=== PATIENT | female | born 1990 | race Caucasian/White ===

== ENCOUNTER 2022-12-10 14:31 | Outpatient (REF) | payer MEDICAID, SELFPAY ==
[2022-12-11 03:55] LABS: CT PCR NOT DETECTED (Not Detect.); NG PCR NOT DETECTED (Not Detect.)
[2022-12-11 12:59] LABS: BV Int Neg Control Negative (Negative); BV Int Pos Control Positive (Positive)
[2022-12-12 23:43] LABS: HPV mRNA E6/E7 rflx Not Detected (Not Detected)
== END 2022-12-10 14:32 | disposition home or self-care (01) ==
LOC: HO.LNP 14:31
PROVIDERS: PCP General Practice; Visit Provider Advanced Practice Midwife
DX: Z01.419 Encounter for gynecological examination (general) (routine) without abnormal findings (principal); Z11.51 Encounter for screening for human papillomavirus (HPV); Z20.2 Contact with and (suspected) exposure to infections with a predominantly sexual mode of transmission; L98.9 Disorder of the skin and subcutaneous tissue, unspecified; K61.0 Anal abscess; Z98.51 Tubal ligation status
CPT/HCPCS: 0353U; 87255; 87480; 87510; 87624; 87660; 88142; 99385

== ENCOUNTER 2022-12-10 14:31 | Outpatient (AMB) | payer MEDICAID, SELFPAY ==
--- NOTE | 2022-12-10 14:54 | A.OFFVIS_ITS ---
Intake Vital Signs 12/10/22 14:54 Weight 145 lb Intake Visit Reasons: Annual Intake Note: exboyfriend said he felt a ball in her vagina. Filter Tender Required: No Information Interpreted: non-clinical & clinical Lubrication Technician: Lubrication Technician Present (Kyree) Allergies No Known Allergies Allergy (Verified 12/10/22 14:57) Medication List - Last Reconciled 12/10/22 by Roseanne Mondragon CNM No Known Home Meds Is last menstrual period known: No Post menopausal: No HPI Annual HPI Details Patient is here for an annual exam though she for got that that was the reason. She does have some concerns she was with her partner for 8 years and she broke up with him but before there break-up he told her that he felt something like a ball inside her vagina and so she is concerned about that also at the very end of the visit she shared that she was concerned about a lesion that comes and goes near her but and sometime she gets 1 near her lips she does not have the 1 near her lips now (vaginal lips) but she does have the 1 near her but and after the exam was all over she asked me to check that. She has a history of vaginal deliveries and she also had C-sections. She had her tubes tied but then she got afterward so she asked for a with her last 1 and had her tubes removed. She has 6 children. She is not currently with anybody but she is contemplating a future relationship and she does have questions about libido and wondering why she did not have it the last few years though she also voiced that it could have a lot to do with the relationship. [facility] Surgical History (Updated 12/10/22 @ 15:49 by Roseanne Mondragon CNM) Hx of tubal ligation Family History (Updated 12/10/22 @ 15:02 by ELAINE Espinoza) Maternal Grandmother Breast cancer Social History (Updated 12/10/22 @ 15:03 by ELAINE Espinoza) Patient Tobacco Use Status: Current everyday Tobacco user Cigarettes Per Day: 7 Female Reproductive History Menstrual Age of Menarche: 13 Duration of menses: 3-5 days control method: other (Tubal ligation) Total pregnancies: 7 Full term: 6 Number of Living Children: 6 Ab induced: 1 Date of last pap smear: 12/06/11 (negative) Physical Exam Const General: healthy appearing, comfortable, no acute distress, well developed and alert Nutritional Appearance: average body habitus Orientation/consciousness: patient oriented x3 Limitations: no limitations HEENT Head: Yes normocephalic Neck Neck: Yes normal visual inspection Chest Chest palpation & inspection: normal inspection of the chest Breast/axilla inspection: normal inspection of the breasts and normal inspection of the axillae Breast/axilla palpation: normal palpation of the breasts and normal palpation of the axillae Resp Effort & Inspection: normal respiratory effort GI Inspection: Yes normal to inspection, No Abdominal wall edema and No distended Palpation (GI): Soft to palpation and nontender Other: Speculum exam within normal limits normal anatomy. Vagina pink moist. Evidence of recent weight loss both vaginally and all over (patient says she did lose a lot of weight this past year) cervix is multiparous long close thick pink mobile uterus is anteverted mobile nontender patient has fairly good tone with Kegel no evidence of vaginal descensus at this point though patient is has wondered about that. After the initial pelvic exam patient asked me to check the area near her rectum so posterior and to the right there we was within the puckers of rectal mucosa about 2-3 centimetres from the actual rectum there was a 1 cm oval shallow ulcerated area patient chin did find it tender to touch with the Q-tip HSV culture being sent. General: Yes bladder normal to palpation External Female Exam: normal external appearance and normal appearance of the urethra Speculum Exam - Vagina: normal appearance of the vagina, normal palpation and normal vaginal discharge Speculum Exam - Cervix: normal appearance of the cervix, normal palpation and nontender Bimanual exam- vagina & uterus: normal bimanual exam, normal palpation, uterine size normal, bladder normal to palpation, consistency normal, normal palpation, uterine mobility normal, uterine shape normal, No Cervical tenderness present, non-tender and no cervical motion tenderness Bimanual Exam- Adnexa, other: normal adnexae, no masses, normal and No adnexal tenderness Neuro General: patient oriented x3 Assessment & Plan Assessment & Plan (1) Skin lesion: Code(s): L98.9 - Disorder of the skin and subcutaneous tissue, unspecified (2) Perianal abscess: Code(s): K61.0 - Anal abscess (3) Cervical cancer screening: Code(s): Z12.4 - Encounter for screening for malignant neoplasm of cervix (4) Screen for sexually transmitted diseases: Code(s): Z11.3 - Encounter for screening for infections with a predominantly sexual mode of transmission (5) Women's annual routine gynecological examination: Code(s): Z01.419 - Encounter for gynecological examination (general) (routine) without abnormal findings (6) Hx of tubal ligation: Comment: Also had complete salpingectomy with last . Code(s): Z98.51 - Tubal ligation status Plan -----Discussed in this visit the following: healthy balanced diet, regular and consistent exercise, getting recommended health screens, doing the best she can for her particular health concerns, kegel exercises, pap smear screening and followup recommendations, mammography screening and SBE, normal changes in cycles in her life stage--- .---I Had the patient and demonstrate a Kegel contraction at the end of the exam, ordered in order to explain a Kegel exercise, and instructed the patient on doing the same exercises several times a day with increasing strength each time. One useful to is to imagine pursestring around the vagina and pulling it tight and upwards as if raising the vagina, or imagining that her tight muscles are on the 1st floor and she is trying to pull them up to the 5th floor and then slowly letting them go down. To try to do these several times a day but focus on the quality and the strength of the exercises more than the quantity, and tried isolate just those muscles and not involve other body parts. Discussed the possibility that it could be a skin lesion from a scratch that got superficially infected but it also could very well be herpetic discussed the natural transmission of herpes from 1 person to another and hygiene and how to prevent further transmission. Discussed that it could have been there for a long time as she seems to notice it coming and going over the years. There was no concurrently lesion on her labia to assess at this time. Will have a visit to review the results in 7-10 days as she had lots of questions about this and was processing. Orders: Orders CT NG by PCR Today Z20.2 - Contact with and (suspected) exposure to infections with a predominantly sexual mode of transmission Herpes Virus Culture rflx Type Today K61.0 - Anal abscess Bacterial Vaginosis Panel Today Z20.2 - Contact with and (suspected) exposure to infections with a predominantly sexual mode of transmission Pap Smear Today Z12.4 - Encounter for screening for malignant neoplasm of cervix Coding Level of Care Code New Pt Prev Care 18-39yr([id number] Diagnoses Skin lesion L98.9 Perianal abscess K61.0 Cervical cancer screening Z12.4 Screen for sexually transmitted diseases Z11.3 Women's annual routine gynecological examination Z01.419 Hx of tubal ligation Z98.51
== END 2022-12-10 15:52 | disposition home or self-care (01) ==
PROVIDERS: PCP General Practice; Visit Provider Advanced Practice Midwife
DX: L98.9 Disorder of the skin and subcutaneous tissue, unspecified (principal); K61.0 Anal abscess; Z12.4 Encounter for screening for malignant neoplasm of cervix; Z11.3 Encounter for screening for infections with a predominantly sexual mode of transmission; Z01.419 Encounter for gynecological examination (general) (routine) without abnormal findings; Z98.51 Tubal ligation status
CPT/HCPCS: 99385

== ENCOUNTER 2022-12-16 10:21 | Outpatient (AMB) | payer MEDICAID, SELFPAY ==
--- NOTE | 2022-12-16 10:21 | A.OFFVIS_ITS ---
Intake Intake Visit Reasons: TV test results Intake Note: [phone] Allergies No Known Allergies Allergy (Verified 12/10/22 14:57) HPI TV test results HPI Details This is a tele visit to discuss patient's positive HSV results. She had had a visit last week and at the end of the visit she asked me to check a perianal lesion. She said that it came and went. It is already gone now she sometimes gets it on her vaginal lips as well. PFSH Surgical History (Updated 12/10/22 @ 15:49 by Roseanne Mondragon CNM) Hx of tubal ligation Family History (Updated 12/10/22 @ 15:02 by ELAINE Espinoza) Maternal Grandmother Breast cancer Social History (Updated 12/10/22 @ 15:03 by ELAINE Espinoza) Patient Tobacco Use Status: Current everyday Tobacco user Cigarettes Per Day: 7 Female Reproductive History Menstrual Age of Menarche: 13 Results Reviewed Results Reviewed: Name: Kenya Verdugo Age/Sex: 32/F : 1990 Unit#: [id number] Attend Dr: Roseanne Mondragon CNM Re12/10/22 Status: DEP REF Location: [facility] Disch: SPEC : [id number] JAYASHREE: 12/10/22 STATUS: COMP REQ : [id number] RECD: 12/10/[address]: Roseanne Mondragon CNM COMP: 12/14/22134 ENTERED: 12/10/22 [facility] [place] DR: Kiya Burnett ORDERED: HSV Cult rflx QUERIES: Herpes Virus Culture Source ANAL Test Result Flag Reference Site HSV Cult rflx SEE NOTE A QUM HERPES SIMPLEX VIRUS CULTURE W/RFL TO TYPING Micro Number: [id number] Test Status: Final Specimen Source: Not given Specimen Quality: Adequate HSV Culture: Isolated HSV TYPE 2: Isolated HSV TYPE 1: The incidence of HSV 1 infection in the presence of HSV 2 (dual infection) is extremely rare. Therefore, testing for HSV 1 was not performed. THIS TEST WAS PERFORMED AT: [facility] [address] [place] [id number] TANNER ALFORD MD Assessment & Plan Assessment & Plan (1) Perianal abscess: Code(s): K61.0 - Anal abscess (2) Skin lesion: Code(s): L98.9 - Disorder of the skin and subcutaneous tissue, unspecified (3) Recurrent HSV (herpes simplex virus): Comment: Culture of perianal lesion from 12/10/2022 positive for HSV to patient says they have come and gone over the last year a couple of times p.r.n. Valtrex prescribed and extensive teaching. Declines other STI testing other than what was done at visit. Code(s): B00.9 - Herpesviral infection, unspecified Plan See note under HSV. Full teaching was done at the visit and teaching was repeated again about transmission and recurrences,. Extensive teaching about the natural history of this and how it can be shared with other people and how to guard against this and possible times that the virus can shed from lesions both before and while there is interruption. Discussed care and hygiene to prevent transmission within the family as well as sexual contacts with careful hand washing and sharing of clothing towels, etc. I offered a prescription for p.r.n. treatment with Valtrex and instructed her on how to take it and sent a prescription for 30 tablets of else I clear to her [facility] pharmacy with 1 refill that she can take for 3-5 days for episodic outbreaks will see her p.r.n. I offered other testing for STIs including blood work but she declined I did review her other negative labs. pap Smear still pending Medications: New valacyclovir take for 3-5 days for episodic outbreak. 1,000 mg PO DAILY 30 tabs 1RF Telehealth Telehealth Location of provider rendering services: practice address Location of patient: address on file Patient Identification confirmed using: Name, : Yes Telehealth method: video Patient verbally consented to treatment: Yes Patient verbally consented to billing insurance company: Yes Patient informed of any privacy concerns related to visit: Yes Coding Level of Care Code Tele Est Pt Level 3 (37991) Diagnoses Perianal abscess K61.0 Skin lesion L98.9 Recurrent HSV (herpes simplex virus) B00.9
== END 2022-12-16 14:39 | disposition home or self-care (01) ==
LOC: HO.HWS 10:21
PROVIDERS: PCP General Practice; Visit Provider Advanced Practice Midwife
DX: K61.0 Anal abscess (principal); L98.9 Disorder of the skin and subcutaneous tissue, unspecified; B00.9 Herpesviral infection, unspecified
CPT/HCPCS: 99213

== ENCOUNTER → 2022-12-16 10:21 | Outpatient (BNVA) | payer MEDICAID, SELFPAY | PROVIDERS: PCP General Practice; Visit Provider Advanced Practice Midwife ==

== ENCOUNTER 2023-03-13 16:46 | Outpatient (REF) | payer MEDICAID, SELFPAY ==
[2023-03-14 15:17] LABS: BV Int Neg Control Negative (Negative); BV Int Pos Control Positive (Positive)
== END 2023-03-13 16:47 | disposition home or self-care (01) ==
LOC: HO.HHCLNP 16:46
PROVIDERS: Visit Provider Advanced Practice Midwife
DX: N89.8 Other specified noninflammatory disorders of vagina (principal)
CPT/HCPCS: 87480; 87510; 87660

== ENCOUNTER 2023-08-07 22:19 | Emergency (ER) | payer OTHER, SELFPAY ==
--- NOTE | 2023-08-07 | ECG_ITS ---
Test Reason : EPIGASTRIC PAIN Blood Pressure : / mmHG Vent. Rate : 078 BPM Atrial Rate : 078 BPM P-R Int : 166 ms QRS Dur : 064 ms QT Int : 354 ms P-R-T Axes : 067 023 020 degrees QTc Int : 403 ms Normal sinus rhythm Normal ECG When compared with ECG of 27-DEC-2012 12:35, No significant change was found Referred By: Generic ED Physician Electronically Signed By:QUINTEN RITTER
[2023-08-07 22:37] VITALS: BP 101/73; PULSE 74; RESP 16; TEMP 35.9; O2SAT 98; BMI 28.3
[2023-08-07 22:56] LABS: Basophils Absolute Auto 0.1 X10*3/uL (0.0-0.2); Basophils Percent Auto 0.7 % (0-2); Eosinophils Absolute Auto 1.3 X10*3/uL (0.0-0.4); Eosinophils Percent Auto 13.3 % (0-4); Hematocrit 42.6 % (37.0-47.0); Imm Gran Abs Auto 0.04 X10*3/uL (0.00-0.03); Imm Gran Pct Auto 0.4 % (0.0-0.4); Lymphocytes Percent Auto 31.2 % (20-40); MANUAL DIFF FLAG NO; Mean Corpuscular HGB Conc 35.2 g/dl (31.0-35.0); Mean Corpuscular Hemoglobin 30.5 pg (27.0-33.0); Mean Corpuscular Volume 86.8 fL (80.0-98.0); Mean Platelet Volume 9.4 fL (9.4-12.3); Monocytes Absolute Auto 0.5 X10*3/uL (0.1-1.2); Monocytes Percent Auto 5.3 % (2-11); Neutrophils Absolute Auto 4.8 x10*3/uL (2.0-8.3); Neutrophils Percent Auto 49.1 % (45-73); Platelet Count 269 X10*3/uL (160-400); Red Blood Count 4.91 X10*6/uL (4.20-5.50); Red Cell Distribution Width 12.1 % (11.0-16.0); White Blood Count 9.7 X10*3/uL (4.8-10.8)
[2023-08-07 23:12] LABS: Alanine Aminotransferase 14 U/L (0-31); Albumin Level 4.1 g/dL (3.5-5.0); Alkaline Phosphatase 45 U/L (39-117); Anion Gap 10 (12-20); Aspartate Amino Transferase 12 U/L (5-31); Bilirubin Direct 0.1 mg/dL (0.0-0.5); Bilirubin Total 0.4 mg/dL (0.0-1.0); Blood Urea Nitrogen 12 mg/dL (9-16); Calcium 9.7 mg/dL (8.4-10.2); Carbon Dioxide 27 mmol/L (22-29); Chloride 106 mmol/L (96-108); Creatinine Clr Calc Pharmacy 99.9; Estimated Glomerular Filt Rate > 60; Glucose Random 108 mg/dL (60-115); Lipase 37 U/L (8-78); Sodium 139 mmol/L (135-145); Total Protein 6.4 g/dL (6.5-8.0)
[2023-08-08 00:35] VITALS: BP 117/79; PULSE 66; RESP 16; TEMP 36.7; O2SAT 100
[2023-08-08 00:45] VITALS: BP 113/77; PULSE 71; RESP 20; TEMP 36.6; O2SAT 99
[2023-08-08 01:18] LABS: Appearance Urine Clear; Color Urine Yellow; Glucose Urine UA Negative (Negative); Leukocyte Esterase Urine Negative (Negative); Nitrite Urine Negative (Negative); Specific Gravity - Urine 1.015 (1.005-1.025); Urine Blood Negative (Negative); Urine Ketones Negative (Negative); Urine Protein Negative (Neg-Trace)
[2023-08-08 01:19] LABS: UPreg QC Valid YES; Urine Pregnancy NEGATIVE (NEGATIVE)
--- NOTE | 2023-08-08 02:46 | ED_ITS ---
HPI - Abdominal Pain General Chief Complaint: Abdominal Pain Stated Complaint: abd pain ,headache Time Seen by Provider: 08/08/23 02:35 Source: patient Mode of arrival: ambulatory Limitations: no limitations History of Present Illness ED Provider: Dr. Rubina Oliveira HPI narrative: Patient comes to the emergency room complaining of epigastric burning sensation that starts after eating anything. Patient reports that this has been going on for about 4 days. Patient denies nausea vomiting or diarrhea. At this time, since patient has not eaten, patient is asymptomatic. Patient denies chest pain or shortness of breath. Related Data Previous Rx's ?Medication ?Instructions ?Recorded valacyclovir 1 gram tablet 1,000 mg PO DAILY #30 tabs 12/16/22 omeprazole 20 mg capsule,delayed 20 mg PO DAILY #30 caps 08/08/23 release Allergies Allergy/AdvReac Type Severity Reaction Status Date / Time No Known Allergies Allergy Verified 08/07/23 22:40 Review of Systems Review of Systems Constitutional : No Weight loss, No Fever, No Chills, No Night Sweats, No Fatigue, No Malaise ENT/Mouth : No Hearing loss, No Ear Pain, No Nasal Congestion, No Sinus Pain, No Hoarseness, No sore throat, No Rhinorrhea, No Swallowing Difficulty Eyes: No Eye Pain, No Swelling, No Redness, No Foreign Body, No Discharge, No Vision Changes Cardiovascular : No Chest Pain, No SOB, No Dyspnea on Exertion, No Orthopnea, No Edema, No Palpitations Respiratory : No Cough, No Sputum, No Wheezing, No Smoke Exposure, No Dyspnea Gastrointestinal : No Nausea, No Vomiting, No Diarrhea, No Constipation, complaining of epigastric pain after eating Genitourinary : no irregular bleeding, No Dysuria, No Urinary Frequency, No Hematuria, No Urinary Incontinence, No Urgency, No Flank Pain, No Urinary Flow Changes, No Hesitancy Musculoskeletal : No joint pain, No Myalgias, No Joint Swelling Skin : No Skin Lesions, No rash Neuro : No Weakness, No Numbness, No Paresthesias, No Loss of Consciousness, No Dizziness, No Headache Psych : No Anxiety/Panic, No Depression, No SI/HI/AH/VH, No Social Issues, Heme/Lymph: No Bruising, No Bleeding,No Lymphadenopathy Endocrine : No Polyuria, No Polydipsia, No Temperature Intolerance [facility] Past Medical History Surgical History (Updated 12/10/22 @ 15:49 by Roseanne Mondragon CNM) Hx of tubal ligation Family History Family History (Updated 12/10/22 @ 15:02 by ELAINE Espinoza) Maternal Grandmother Breast cancer Social History Social History (Updated 12/10/22 @ 15:03 by ELAINE Espinoza) Patient Tobacco Use Status: Current everyday Tobacco user Cigarettes Per Day: 7 Advance Directives: No Advance Directives Information Provided: No Do you have a plan to hurt others: No Plan Physical Exam ED Vital Signs: Vital Signs - 24 hr 08/07/23 22:37 08/08/23 00:35 08/08/23 00:45 Temperature 96.7 F L 98.0 F 97.8 F Pulse Rate 74 66 71 Respiratory Rate 16 16 20 Blood Pressure 101/73 117/79 113/77 Pulse Oximetry 98 100 99 Oxygen Delivery Method Room Air Room Air Room Air BMI result Body Mass Index 28.3 Const Other: Appearance: Alert. Oriented X3. No acute distress. Eyes: Pupils equal, round and reactive to light. ENT: Pharynx normal. Neck: Normal inspection. Neck supple. No lymph nodes noted. No crepitus CVS: Normal heart rate and rhythm. Pulses normal. Normal S1 and S2 Respiratory: No respiratory distress. Breath sounds normal. No Wheezing. No rales Abdomen: Soft and nontender. No rigidity. No distention. Skin: Skin warm and dry. Normal skin color. Normal skin turgor. Extremities: No lower extremity edema. No Lacerations. No Rash Neuro: Oriented X 3. No motor deficit. No sensory deficit. Moving all extremities. No slurred speech. CN 2 through 12 grossly intact Psych: calm, cooperative, normal affect Medical Decision Making Medical Decision Making MDM Narrative: -my interpretation of labs: Normal hematology and chemistry, normal LFTs and lipase -patient's physical exam was normal, did not have any pain to palpation. -discussed with the patient that based on her symptoms descriptions, patient likely has peptic ulcer disease versus gastritis. -patient declined GI cocktail. Patient agreeable to take omeprazole long-term. Patient made aware that if the treatment does not work within the next couple of months, she may need an upper endoscopy, agrees with plan. Differential Diagnosis Differential Diagnoses: The differential diagnosis associated with the presentation includes (Gastritis, peptic ulcer disease) Lab Data [facility] Lab Attestation statement: I reviewed the patient's lab results. 08/07/23 22:51 08/07/23 22:51 Labs: Lab Results 08/07/23 08/08/23 Range/Units 22:51 01:10 WBC 9.7 (4.8-10.8) X10*3/uL RBC 4.91 (4.20-5.50) X10*6/uL Hgb 15.0 (12.0-16.0) g/dl Hct 42.6 (37.0-47.0) % MCV 86.8 (80.0-98.0) fL MCH 30.5 (27.0-33.0) pg MCHC 35.2 H (31.0-35.0) g/dl RDW 12.1 (11.0-16.0) % Plt Count 269 (160-400) X10*3/uL MPV 9.4 (9.4-12.3) fL Immature Gran % (Auto) 0.4 (0.0-0.4) % Neut % (Auto) 49.1 (45-73) % Lymph % (Auto) 31.2 (20-40) % [place] % (Auto) 5.3 (2-11) % Eos % (Auto) 13.3 H (0-4) % Baso % (Auto) 0.7 (0-2) % Lymph # (Auto) 3.0 (1.2-4.9) X10*3/uL [place] # (Auto) 0.5 (0.1-1.2) X10*3/uL Eos # (Auto) 1.3 H (0.0-0.4) X10*3/uL Baso # (Auto) 0.1 (0.0-0.2) X10*3/uL Abs Immat Gran (auto) 0.04 H (0.00-0.03) X10*3/uL Absolute Neuts (auto) 4.8 (2.0-8.3) x10*3/uL Absolute Nucleated RBC 0.000 (0.0-0.012) X10*3/uL Nucleated RBC % (auto) 0.0 (0.0-0.2) /100WBC Sodium 139 (135-145) mmol/L Potassium 4.0 (3.3-5.1) mmol/L Chloride 106 (96-108) mmol/L Carbon Dioxide 27 (22-29) mmol/L Anion Gap 10 L (12-20) BUN 12 (9-16) mg/dL Creatinine 0.70 (0.5-1.4) mg/dL Estim Creat Clear Calc 99.9 Estimated GFR > 60 Random Glucose 108 (60-115) mg/dL Calcium 9.7 (8.4-10.2) mg/dL Total Bilirubin 0.4 (0.0-1.0) mg/dL Direct Bilirubin 0.1 (0.0-0.5) mg/dL AST 12 (5-31) U/L ALT 14 (0-31) U/L Alkaline Phosphatase 45 (39-117) U/L Total Protein 6.4 L (6.5-8.0) g/dL Albumin 4.1 (3.5-5.0) g/dL Lipase 37 (8-78) U/L Urine Color Yellow Urine Appearance Clear Urine pH 6.0 (5.0-9.0) Ur Specific [place] 1.015 (1.005-1.025) Urine Protein Negative (Neg-Trace) mg/dL Urine Glucose (UA) Negative (Negative) mg/dL Urine Ketones Negative (Negative) mg/dL Urine Blood Negative (Negative) Urine Nitrite Negative (Negative) Ur Leukocyte Esterase Negative (Negative) Urine Test NEGATIVE (NEGATIVE) Independent Interpretation I performed an independent interpretation of an: EKG (My interpretation of EKG: Normal sinus rhythm, heart rate 78, no ST segment depression or elevation, no T- wave inversion, QTC 403) Discharge Plan Discharge Clinical Impression: Peptic ulcer disease Patient Disposition: Home, Self-Care Instructions: Peptic Ulcer (ED), Diet for Stomach Ulcers and Gastritis (ED) Additional Instructions: Please follow-up with your primary care physician tomorrow. If you have any worsening or new symptoms, please return to the emergency room or call 911 Prescriptions: New omeprazole 20 mg capsule,delayed release(DR/EC) 20 mg PO DAILY Qty: 30 2RF No Action valacyclovir 1 gram tablet 1,000 mg PO DAILY Qty: 30 1RF Rx Instructions: take for 3-5 days for episodic outbreak. Print Language: Portuguese
[2023-08-08 03:03] VITALS: BP 114/70; PULSE 73; RESP 20; TEMP 36.7; O2SAT 98
[2023-08-08 03:04] VITALS: BP 114/70; PULSE 73; RESP 20; TEMP 36.7; O2SAT 98
== END 2023-08-08 03:04 | disposition home or self-care (01) ==
PROVIDERS: Emergency Provider Emergency Medicine; PCP General Practice
DX: K27.9 Peptic ulcer, site unspecified, unspecified as acute or chronic, without hemorrhage or perforation (principal)
CPT/HCPCS: 36415; 80053; 81003; 81025; 82248; 83690; 85025; 93005; 99283; 99284

== ENCOUNTER → 2023-08-07 22:42 | Outpatient (BNV) | payer OTHER, SELFPAY | PROVIDERS: Emergency Provider Emergency Medicine; PCP General Practice; Visit Provider Internal Medicine | DX: R10.13 Epigastric pain (principal) | CPT/HCPCS: 93010 ==

== ENCOUNTER 2023-09-27 20:34 | Emergency (ER) | payer OTHER, SELFPAY ==
[2023-09-27 21:13] VITALS: BP 105/76; PULSE 81; RESP 16; TEMP 36.6; O2SAT 98; BMI 27.0
== END 2023-09-28 00:22 | disposition left against medical advice (07) ==
PROVIDERS: Emergency Provider Emergency Medicine; PCP General Practice
DX: K08.89 Other specified disorders of teeth and supporting structures (principal); Z53.21 Procedure and treatment not carried out due to patient leaving prior to being seen by health care provider
CPT/HCPCS: 99281

== ENCOUNTER 2024-03-23 23:14 | Emergency (ER) | payer MEDICAID, SELFPAY ==
--- NOTE | 2024-03-23 | ECG_ITS ---
Test Reason : cp Blood Pressure : */* mmHG Vent. Rate : 79 BPM Atrial Rate : 79 BPM P-R Int : 156 ms QRS Dur : 66 ms QT Int : 354 ms P-R-T Axes : 61 36 25 degrees QTcB Int : 405 ms Normal sinus rhythm Normal ECG When compared with ECG of 07-Aug-2023 22:42, No significant change was found Referred By: Generic ED Physician Electronically Signed By: QUINTEN RITTER
[2024-03-23 23:18] VITALS: BP 127/85; PULSE 84; RESP 14; TEMP 36.6; O2SAT 98; BMI 33.5
--- NOTE | 2024-03-23 23:22 | MHC.EDTECH ---
Addendum entered by Kerry Claire 03/23/24 23:31: Labs drawn and sent to lab Original Note: Patient brought into triage area,EKG taken per order,signed by provider
[2024-03-23 23:38] LABS: MANUAL DIFF FLAG NO
[2024-03-23 23:39] LABS: Basophils Percent Auto 0.4 % (0-2); Eosinophils Absolute Auto 0.4 X10*3/uL (0.0-0.4); Eosinophils Percent Auto 4.5 % (0-4); Hemoglobin 14.4 g/dl (12.0-16.0); Imm Gran Abs Auto 0.01 X10*3/uL (0.00-0.03); Imm Gran Pct Auto 0.1 % (0.0-0.4); Lymphocytes Absolute Auto 3.4 X10*3/uL (1.2-4.9); Lymphocytes Percent Auto 42.6 % (20-40); Mean Corpuscular HGB Conc 35.1 g/dl (31.0-35.0); Mean Corpuscular Hemoglobin 31.2 pg (27.0-33.0); Mean Corpuscular Volume 88.9 fL (80.0-98.0); Mean Platelet Volume 9.4 fL (9.4-12.3); Monocytes Absolute Auto 0.5 X10*3/uL (0.1-1.2); Monocytes Percent Auto 6.9 % (2-11); Neutrophils Absolute Auto 3.6 x10*3/uL (2.0-8.3); Neutrophils Percent Auto 45.5 % (45-73); Platelet Count 284 X10*3/uL (160-400); Red Blood Count 4.61 X10*6/uL (4.20-5.50); Red Cell Distribution Width 12.1 % (11.0-16.0); White Blood Count 7.9 X10*3/uL (4.8-10.8)
[2024-03-23 23:55] LABS: Alanine Aminotransferase 22 U/L (0-31); Albumin Level 3.9 g/dL (3.5-5.0); Alkaline Phosphatase 50 U/L (39-117); Anion Gap 11 (12-20); Aspartate Amino Transferase 15 U/L (5-31); Bilirubin Total 0.1 mg/dL (0.0-1.0); Blood Urea Nitrogen 10 mg/dL (9-16); Calcium 8.4 mg/dL (8.4-10.2); Carbon Dioxide 25 mmol/L (22-29); Chloride 108 mmol/L (96-108); Creatinine Clr Calc Pharmacy 119.8; Estimated Glomerular Filt Rate > 60; Glucose Random 97 mg/dL (60-115); Potassium 3.8 mmol/L (3.3-5.1); Sodium 140 mmol/L (135-145); Total Protein 6.6 g/dL (6.5-8.0)
[2024-03-24 00:01] LABS: Troponin-I High Sensitivity < 2.7 ng/L (<3.5-17.0)
--- OUTSIDE RECORDS SUMMARY | 2024-03-24 00:07 | XMS_ITS | Clinical Summary ---
Author Organization [employer] Address [address] [place] [address] [address] [place] [address] Care Team Providers Care Appraiser Art Name Role Phone Kiya Burnett MD Primary Care Provider [phone] Allergies No known active allergies Medications Vit-Fe Fumarate-FA ( Vitamins) 28-0.8 MG tablet TAKE ONE TABLET DAILY FOR HAIR LOSS 90 tablet 3 4 Active ibuprofen 800 MG tabletIndicatio ns:Poor dentition Take 1 tablet (800 mg) by mouth 3 times daily. 90 tablet 4 Active omeprazole (PriLOSEC) [address] capsule Take 20 mg by mouth Once per day. 4 Active valACYclovir (Valtrex) 500 MG tabletIndicatio ns:Herpes simplex Take 1 tablet (500 mg) by mouth Once per day. 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 Assessment & Plan (11/10/2023 3:17 PM EDT): Four episodes of outbreak in the past year Will trial daily suppressive therapy with valtrex 500mg daily Hair loss 05/05/2023 Poor dentition 05/05/2023 Assessment & Plan (07/18/2023 12:04 PM EDT): I advise to book an appointment as soon as possible with any dental office who can help with this Ibuprofen and Augmentin prescribed today Assessment & Plan (05/05/2023 3:02 PM EDT): With obvious open caries and wearing away of teeth Amoxicillin BID x 7 days Ibuprofen 800mg up to TID Trial Gabapentin 300mg at night for nerve pain Allergic contact dermatitis due to other agents 05/05/2023 Assessment & Plan (05/05/2023 3:01 PM EDT): Triamcinolone up to BID for 7-10 days Remove metal necklaces Wash with non scented soap Encounter for screening for infections with predominantly sexual mode of transmission 04/05/2022 Mild persistent asthma 07/02/2017 Anxiety 11/21/2014 Immunizations Name Administration Dates Next Due DTaP 08/01/2012 DTaP, 5 pertussis antigens 07/25/1993,,1989,1989 Hep A, ped/adol, 2 dose 11/10/2001,05/14/2000 Hep B, Adolescent or Pediatric 12/08/2002,2001,05/14/2000 Hib (HbOC) 11/24/1990 IPV 07/25/1992, 1,1989,1989 MMR 10/25/1990 TD (adult), 2 Lf tetanus tox oid, preservative free, adsorbed 12/08/2002 Tdap 10/06/2019 Social History Tobacco Use Types Packs/Day Years Used Date Smoking Tobacco: Every Day Cigarettes Passive Smoke Exposure: Current Smokeless Tobacco: Never Tobacco Cessation:Ready to Q uit: Not Asked; Counseling Given: Not Answered Alcohol Use Standard Drinks/Week Comments Yes 0 (1 standard drink = 0.6 oz pur e alcohol) Depression Answer Date Recorded Patient Health Questionnaire-9 Score 0 11/10/2023 Patient Health Questionnaire-9 Score 0 11/10/2023 Last PHQ-9: Questionnaire Data Not on file 0 11/10/2023 Housing Stability Answer Date Recorded What is your housing situation today? I have zoltan lopez 04/28/[address] you li ve. Do you have problems with any of the following? Pests such as bugs, ants, or mice 04/28/2023 Food Insecurity Answer Date Recorded Within the past 12 months, y ou worried that your food would run out before you got money to buy more: Never True 04/28/2023 Within the past 12 months,th e food you bought just didn't last and you didn't have enough money to get more: Never True 05/2023 Transportation Answer Date Recorded In the past 12 months, has l ack of transportation kept you from medical appts, meetings, work or from getting things needed for daily living? No 04/28/2023 Utilities Answer Date Recorded In the past 12 months, has t he electric, gas, oil or water company threatened to shut off services in your home? No 04/28/2023 Depression Answer Date Recorded Patient Health Questionnaire-2 Score 0 11/10/2023 Comments No Sex and Gender Information Value Date Recorded Sex Assigned at Female 12/24/2021 10:15 AM EDT Legal Sex Female 10:15 AM EDT Gender Identity Female 11/10/2023 3:18 PM EDT Sexual Orientation Choose not to disclose 2021 10:15 AM EDT Last Filed Vital Signs Vital Sign Reading Time Taken Comments Blood Pressure 115/76 11/10/2023 2:32 PM EDT Pulse 86 11/10/2023 2:32 PM EDT Temperature 36.3 ??C (97.3 ??F) 11/10/2023 2:32 PM ED T Respiratory Rate 20 11/10/2023 2:32 PM EDT Oxygen Saturation 100% 11/10/2023 2:32 PM EDT Inhaled Oxygen Concentration - - Weight 65.7 kg (144 lb 12.8 oz) 11/10/2023 2:32 PM EDT Height 154.9 cm (5' 1 ) 11/10/2023 2:32 PM EDT Body Mass Index 27.36 11/10/2023 2:32 PM EDT Plan of Treatment Health Maintenance Due Date Last Done Comments HIV Screening 1989 Lipid Panel 1989 Pneumococcal Vaccine: Pediatrics (0 to 5 Years) and At-Risk Patients (6 to 49) Years) (1 of 2 - PCV) 1995 Alcohol/Substance Use Screening 2001 Family Planning (PISQ) 2004 Hepatitis C Screening 2007 COVID-19 Vaccine ( season) 2023 Influenza Vaccine (#1) 2023 SDOH Screening 04/27/2024 04/28/2023 Depression Screening 11/09/2024 11/10/2023, 11/10/19 24 Tobacco Screening 11/09/2024 11/10/2023 Pap Smear 12/10/2025 12/10/2022 Cervical Cancer Screening 12/11/2027 HPV/Cotest 12/11/2027 12/10/2022 DTaP/Tdap/Td Vaccines (7 - Td or Tdap) 10/05/2029 10/06/2019, 08/01/2012, 12/08/2002, Additional history exists Zoster Vaccines (1 of 2) 2039 RSV Patients and Patients Aged 60 years or older (1 - 1-dose 75+ series) 2064 HIB Vaccines Completed 11/24/1990 IPV Vaccines Completed 07/25/1992, 02/1990, 1989, Additional history exists Hepatitis A Vaccines Completed 11/10/2001, 05/15/19 Hepatitis B Vaccines Completed 12/08/2002, 11/10/2001, 05/14/2000 HPV Vaccines Aged Out No longer eligi ble based on patient's age to complete this topic Meningococcal Vaccine Aged Out No mert jacquie eligible based on patient's age to complete this topic RSV under 20 months Aged Out No longe r eligible based on patient's age to complete this topic Rotavirus Vaccines Aged Out No longer eligible based on patient's age to complete this topic Procedures Procedure Name Priority Date/Time Associated Diagnosis Comments HIGH SENSITIVITY TROPONIN I Routine 03/23/2024 11:31 PM EST Herpes simplex COMPREHENSIVE METABOLIC PANEL Routine 03/23/2024 11:31 PM EST Herpes simplex CBC WITH AUTO DIFFERENTIAL Routine 03/23/2024 11:30 PM EST Herpes simplex HPV MRNA E6/E7 REFLEX TO HPV 16, 18/45 Routine 12/10/2022 3:33 PM EDT PAP SMEAR Routine 12/10/2022 3:33 PM EDT from Last 3 Months or Most Recently Relevant to Health Maintenance Results * High Sensitivity Troponin I (03/23/2024 11:31 PM EST) Pathologist [facility] TROPONIN I HIGH SENSITIVITY <2.7 <3.5 - 17.0 ng/L [facility] Comment:The Hurt high sens itivity Troponin-I results should beused in conjunction with other diagnostic information suchas ECG, clinical observations and information, and patientsymptoms to aid in the diagnosis of UT. 03/23/2024 11:3 1 PM EST 03/23/2024 11:36 PM EST us Generic External Data Provider LAB BLOOD ORDERAB LES Final Result [facility] [address] [place] [phone] * (ABNORMAL) Comprehensive Metabolic Panel (03/23/2024 11:31 PM EST) Pathologist [facility] Sodium 140 135 - 145 mmol/L [facility] Potassium 3.8 3.3 - 5.1 mmol/L [facility] Chloride 108 96 - 108 mmol/L [facility] Carbon Dioxide 25 22 - 29 mmol/L [facility] Anion Gap 11(L) 12 - 20 [facility] Urea Nitrogen (BUN) 10 9 - 16 mg/dL [facility] Creatinine, Serum 0.63 0.5 - 1.4 mg/dL [facility] Creatinine Clr Calc Pharmacy 119.8 [facility] Comment:Provided height and weight: 154.94 cm,80.5 kg.eGFR (calculated from the MDRD study equation) and eCrCl(calculated from the Cockcroft-Gault equation) are based ondifferent parameters and may not yield comparable results.If eCrCl result is absurd, please check patient'sheight/weight. Estimated Glomerular Filt Rate >60 [facility] Comment:Chronic Kidney Disea se: Estimated GFR < 60 mL/min/[id number] Kidney Disease: Estimated GFR < 15 mL/min/1.73m2 Glucose 97 60 - 115 mg/dL [facility] Calcium 8.4 8.4 - 10.2 mg/dL [facility] Bilirubin, Total 0.1 0.0 - 1.0 mg/dL [facility] Aspartate Amino Transferase 15 5 - 31 U/L [facility] Alanine Aminotransferase 22 0 - 31 U/L [facility] Total Protein 6.6 6.5 - 8.0 g/dL [facility] Albumin Level 3.9 3.5 - 5.0 g/dL [facility] Alkaline Phosphatase 50 39 - 117 U/L [facility] 03/23/2024 11:3 1 PM EST 03/23/2024 11:36 PM EST us Generic External Data Provider LAB BLOOD ORDERAB LES Final Result Performing Organization Address City/State/[facility] Co de Phone Number [facility] [address] [place] [phone] * (ABNORMAL) CBC auto differential (03/23/2024 11:30 PM EST) White Blood Count 7.9 4.8 - 10.8 X10*3/uL [facility] Red Blood Count 4.61 4.20 - 5.50 X10*6/uL [facility] Hemoglobin 14.4 12.0 - 16.0 g/dl [facility] Hematocrit 41.0 37.0 - 47.0 % [facility] Mean Corpuscular Volume 88.9 80.0 - 98.0 fL [facility] Mean Corpuscular Hemoglobin 31.2 27.0 - 33.0 pg [facility] Mean Corpuscular HGB Conc 35.1(H) 31.0 - 35.0 g/dl [facility] Red Cell Distribution Width 12.1 11.0 - 16.0 % [facility] Platelet Count 284 160 - 400 X10*3/uL [facility] Mean Platelet Volume 9.4 9.4 - 12.3 fL [facility] Neutrophils Percent Auto 45.5 45 - 73 % [facility] Imm Gran Pct Auto 0.1 0.0 - 0.4 % [facility] Lymphocytes Percent Auto 42.6(H) 20 - 40 % [facility] Monocytes Percent Auto 6.9 2 - 11 % [facility] Eosinophils Percent Auto 4.5(H) 0 - 4 % [facility] Basophils Percent Auto 0.4 0 - 2 % [facility] NRBC Pct Auto 0.0 0.0 - 0.2 /100WBC [facility] Neutrophils Absolute Auto 3.6 2.0 - 8.3 x10*3/uL [facility] Imm Gran Abs Auto 0.01 0.00 - 0.03 X10*3/uL [facility] Lymphocytes Absolute Auto 3.4 1.2 - 4.9 X10*3/uL [facility] Monocytes Absolute Auto 0.5 0.1 - 1.2 X10*3/uL [facility] Eosinophils Absolute Auto 0.4 0.0 - 0.4 X10*3/uL [facility] Basophils Absolute Auto 0.0 0.0 - 0.2 X10*3/uL [facility] NRBC Abs Auto 0.000 0.0 - 0.012 X10*3/uL [facility] 03/23/2024 11:3 0 PM EST 03/23/2024 11:36 PM EST us Generic External Data Provider LAB BLOOD ORDERAB LES Final Result [facility] [address], [place] [phone] * HPV mRNA E6/E7 w/Reflex to HPV Genotypes 16, 18/45 (12/10/2022 3:33 PM EDT) HPV nRNA E6/E7 Not Detected Not Detected [facility] Comment:Methodology: Transcr iption-Mediated AmplificationThis assay detects E6/E7 viral messenger RNA (mRNA) from 14high-risk HPV types (16,18,31,33,35,39,45,51,52,56,58,59,66,68).Cervical sources are required for HPV testing.If a vaginal source from a patient who has had atotal hysterectomy with removal of cervix wassubmitted, please contact the testing laboratoryfor alternative testing options.For additional information, please refer [email or web address](This link if provided for information/educational purposes only.)THIS TEST WAS PERFORMED AT:[employer] [place] [phone] ALFORD MD HPV mRNA E6/E7 [facility] HPV 16 RNA [facility] HPV 18/45 RNA [facility] 12/10/2022 3:33 PM EDT 12/11/2022 8:00 AM EDT [facility] External Provider LAB CYT OLOGY ORDERABLES Final Result [facility] [address] [place] [phone] * Pap Smear (12/10/2022 3:33 PM EDT) 12/10/2022 3:33 PM EDT 12/11/2022 8:00 AM EDT Narrative [facility] - 12/17/2022 8:17 AM EDT ----- ------- Name: Kenya Verdugo ?Age/Sex: 32/F ? : 1990 Unit#: [id number] ?? Attend Dr: AlannaRoseanne JAXON ?Re12/10/22 ?Status: DEP REF ? Location: HO.LNP ?Disch: ? ----- ------- SPEC : [id number] ?RECD: 12/11/22 ? STATUS: ??SOUT ? REQ NUM: [id number] ? JAYASHREE: 12/10/22-615 ? SUBM DR: AlannaRoseanne JAXON ? ENTERED: ??12/11/22 ?SP TYPE: Pap Smr ?OTHR DR: Kiya Burnett ? ORDERED: ??Pap Smear ? Interpretation ?? Satisfactory for evaluation. ?? Negative for intraepithelial lesion or malignancy. ?HPV mRNA E6/E7: ?NOT DETECTED ? This assay detects E6/E7 viral messenger RNA (mRNA) from 14 high-risk HPV types (16, 18, ?? 31, 33, 35, 39, 45, 51, 52, 56, 58, 59, 66, 68) ?? HPV testing performed by [employer], [place], [place]. ??See reference laboratory ?? pion of the EMR for entire report. ?Clinical Information LMP: 2 weeks ago Previous PAP test: 2011, ??WNL ? Material Received ?? ThinPrep-Cervical Copies To: ?? Kiya Burnett ?? [address] ?? [place] [address] ?? [phone] ?? Roseanne Mondragon CNM ?? [address] [facility] ?? [place] [address] ?? [phone] ----- ------- Signed (signature on file) BRAYAN Davis (ASCP) 12/17/22 0817 ? ----- ------- ? END OF REPORT ? us [facility] External Provider LAB CYT OLOGY ORDERABLES Final Result [facility] [address] [place] [phone] [phone] from Last 3 Months or Most Recently Relevant to Health Maintenance Insurance [facility] C3 Member Subscriber Plan / Payer (Ef fective 2022-Present) Name:Kenya Verdugo Relation to Subscriber:Self Name:Kenya Verdugo Payer ID:Not on file Group ID:Not on file Type:Medicaid Address: [address] [place] Care Teams Appraiser Art Relationship Specialty Start Date End Date Kiya Burnett MD [address] [place] [address] PCP - General Family Medicine 10/25/19
--- NOTE | 2024-03-24 00:10 | ED.CHESTPAIN ---
HPI - Chest Pain General Chief Complaint: Chest Pain Stated Complaint: chest pain Time Seen by Provider: 03/24/24 00:10 History of Present Illness ED Provider: Neftali STUBBS narrative: The patient is a 34-year-old female who says that she has been having intermittent chest discomfort for the last 3 weeks. She says she has had problems with chest discomfort like this in the past over several years intermittently. It has been more prevalent recently. She has also had episodes of a sensation of brief skips of her heart rate. She has had no pain or swelling in her legs. She is on no control. She has had a tubal ligation. 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 She also has 5 children at home ranging in age from 4 years to 18 years. The patient has been feeling under a lot of stress. She has stress from her job as well as her family. She has a boyfriend and she finds her relationship stressful because she says the boyfriend is broken up with her a few times. She does not have a lot of support from her family. She feels that she has money stressors as well. Both of her parents are alive. She is unaware of neither of her parents having coronary disease. She says she has an older brother who had some kind of a stroke but she does not know much about it. She also reports having a sibling who in the peripartum period from some kind of cardiac problem. Related Data Previous Rx's ?Medication ?Instructions ?Recorded valacyclovir 1 gram tablet 1,000 mg PO DAILY #30 tabs 12/16/22 omeprazole 20 mg capsule,delayed 20 mg PO DAILY #30 caps 08/08/23 release Allergies Allergy/AdvReac Type Severity Reaction Status Date / Time No Known Allergies Allergy Verified 03/23/24 23:23 Review of Systems Review of Systems: Yes all other systems are reviewed and are negative [facility] Past Medical History Surgical History (Updated 12/10/22 @ 15:49 by Roseanne Mondragon CNM) Hx of tubal ligation Family History Family History (Updated 12/10/22 @ 15:02 by ELAINE Espinoza) Maternal Grandmother Breast cancer Social History Social History (Updated 12/10/22 @ 15:03 by ELAINE Espinoza) Patient Tobacco Use Status: Current everyday Tobacco user Cigarettes Per Day: 7 Advance Directives: No Advance Directives Information Provided: Yes Do you have a plan to hurt others: No Plan Physical Exam Vital Signs: Vital Signs: Last Vital Signs Temp 97.8 F 03/23/24 23:18 Pulse 84 03/23/24 23:18 Resp 14 03/23/24 23:18 BP 127/85 03/23/24 23:18 Pulse Ox 98 03/23/24 23:18 O2 Del Method Room Air 03/23/24 23:18 BMI result Body Mass Index 33.5 Const: Other: The patient has the appearance of a healthy 34-year-old. She does not appear in any distress. HEENT: Other: Appearance of the face is unremarkable. Mucous membranes moist. Face is symmetrical. Eyes: General: appearance normal, both eyes and all related structures Neck: Neck: Yes full ROM and Yes no JVD Resp: Effort & Inspection: normal respiratory effort Auscultation: clear to auscultation bilaterally Cardio: Rate: regular rate Rhythm: regular rhythm Heart sounds: S1 normal heart sound present and S2 normal heart sound present Skin: Other: Skin is dry and unremarkable Neuro: Other: The patient is awake, alert, normal mental status. Cranial nerves 2-12 are grossly intact. She moves her extremities normally and appropriately. Extrem: Other: No calf swelling or tenderness. No edema. No asymmetry. Medical Decision Making Medical Decision Making MDM Narrative: The patient is a 34-year-old woman who presents with very nonspecific symptoms of chest discomfort. She looks entirely well at the moment. She is a smoker. Her EKG is normal. Troponin is normal. She is PERC negative. She describes a lot of psychosocial stressors. She is not suicidal. I think her chest symptoms are probably more a reflection of psychosocial stressors than any underlying pathology. The patient was reassured that her symptoms are unlikely to represent the warning signs of a heart attack or other acutely dangerous process. Given the degree of psychosocial stressors I have given her contact information for the [facility]. The patient should follow up with her PCP and or the [facility]. She was advised to try to reduce smoking. She should return if worse. Lab Data 03/23/24 23:30 03/23/24 23:31 Labs: Lab Results 03/23/24 03/23/24 Range/Units 23:30 23:31 WBC 7.9 (4.8-10.8) X10*3/uL RBC 4.61 (4.20-5.50) X10*6/uL Hgb 14.4 (12.0-16.0) g/dl Hct 41.0 (37.0-47.0) % MCV 88.9 (80.0-98.0) fL MCH 31.2 (27.0-33.0) pg MCHC 35.1 H (31.0-35.0) g/dl RDW 12.1 (11.0-16.0) % Plt Count 284 (160-400) X10*3/uL MPV 9.4 (9.4-12.3) fL Immature Gran % (Auto) 0.1 (0.0-0.4) % Neut % (Auto) 45.5 (45-73) % Lymph % (Auto) 42.6 H (20-40) % [place] % (Auto) 6.9 (2-11) % Eos % (Auto) 4.5 H (0-4) % Baso % (Auto) 0.4 (0-2) % Lymph # (Auto) 3.4 (1.2-4.9) X10*3/uL [place] # (Auto) 0.5 (0.1-1.2) X10*3/uL Eos # (Auto) 0.4 (0.0-0.4) X10*3/uL Baso # (Auto) 0.0 (0.0-0.2) X10*3/uL Abs Immat Gran (auto) 0.01 (0.00-0.03) X10*3/uL Absolute Neuts (auto) 3.6 (2.0-8.3) x10*3/uL Absolute Nucleated RBC 0.000 (0.0-0.012) X10*3/uL Nucleated RBC % (auto) 0.0 (0.0-0.2) /100WBC Sodium 140 (135-145) mmol/L Potassium 3.8 (3.3-5.1) mmol/L Chloride 108 (96-108) mmol/L Carbon Dioxide 25 (22-29) mmol/L Anion Gap 11 L (12-20) BUN 10 (9-16) mg/dL Creatinine 0.63 (0.5-1.4) mg/dL Estim Creat Clear Calc 119.8 Estimated GFR > 60 Random Glucose 97 (60-115) mg/dL Calcium 8.4 D (8.4-10.2) mg/dL Total Bilirubin 0.1 (0.0-1.0) mg/dL AST 15 (5-31) U/L ALT 22 (0-31) U/L Alkaline Phosphatase 50 (39-117) U/L Troponin I High Sens < 2.7 (<3.5-17.0) ng/L Total Protein 6.6 (6.5-8.0) g/dL Albumin 3.9 (3.5-5.0) g/dL Discharge Plan Discharge Clinical Impression: Chest pain Patient Disposition: Home, Self-Care Additional Instructions: Your testing in the emergency room today is very reassuring. I do not think your symptoms of chest pain are indicating any dangerous process. I believe that you have a lot of life stressors and are managing a great deal of responsibility. If at any point you want to speak to somebody about the stress as you were experiencing you can try contacting your primary care doctor's office for assistance in trying to establish a therapist or you can also contact the [email or web address] ([facility]). You can reach them at [phone]. Alternatively they also have walk-in hours at 11:[address] in [place]. So please follow up with your regular doctor and consider reaching out to the [email or web address]. Please do your best to try to reduce smoking. Return to the emergency room if you feel significantly worse. Prescriptions: No Action omeprazole 20 mg capsule,delayed release(DR/EC) 20 mg PO DAILY Qty: 30 2RF valacyclovir 1 gram tablet 1,000 mg PO DAILY Qty: 30 1RF Rx Instructions: take for 3-5 days for episodic outbreak. Referrals: Kiya Burnett MD [Primary Care Provider] - (chest pain, psychosocial stressors, smoking) Print Language: Puerto Rican
[2024-03-24 00:42] VITALS: BP 118/78; PULSE 72; RESP 16; TEMP 36.7; O2SAT 98
== END 2024-03-24 00:50 | disposition home or self-care (01) ==
PROVIDERS: Emergency Provider Emergency Medicine; PCP General Practice
DX: R07.89 Other chest pain (principal); F43.9 Reaction to severe stress, unspecified; F17.210 Nicotine dependence, cigarettes, uncomplicated; Z79.899 Other long term (current) drug therapy
CPT/HCPCS: 36415; 80053; 84484; 85025; 93005; 99283

== ENCOUNTER → 2024-03-23 23:18 | Outpatient (BNV) | payer MEDICAID, SELFPAY | PROVIDERS: Emergency Provider Emergency Medicine; PCP General Practice; Visit Provider Internal Medicine | DX: R07.9 Chest pain, unspecified (principal) | CPT/HCPCS: 93010 ==

== ENCOUNTER 2024-05-07 16:51 | Outpatient (REF) | payer MEDICAID, SELFPAY ==
--- OUTSIDE RECORDS SUMMARY | 2024-05-07 17:00 | XMS_ITS | Encounter Summary ---
Author Organization [employer] Address [address] [place] [address] Care Team Providers Care Launch Steward Name Role Phone Kiya Burnett MD Primary Care Provider [phone] Encounter Details Date Type Department Care Team (Latest Contact Info) Description 05/07/2024 Travel Social History Tobacco Use Types Packs/Day Years Used Date Smoking Tobacco: Every Day Cigarettes Passive Smoke Exposure: Current Smokeless Tobacco: Never Alcohol Use Standard Drinks/Week Comments Yes 0 [...] not to disclose 2021 10:15 AM EDT documented as of this encounter Plan of Treatment Not on file documented as of this encounter Visit Diagnoses Not on filedocumented in this encounter Additional Health Concerns Assessment Noted Time PHQ-9 Depression Total Score: 0 11/10/19 24 2:34 PM EDT documented as of this encounter Care Teams Launch Steward Relationship Specialty Start Date End Date Kiya Burnett MD [address] [place] [address] PCP - General Family Medicine 10/25/19 documented as of this encounter
--- OUTSIDE RECORDS SUMMARY | 2024-05-07 17:00 | XMS_ITS | Encounter Summary ---
Author Organization [employer] Address [address] [facility] 7t [place] [address] Care Team Providers Care Injector Assembler Name Role Phone Kiya Burnett MD Primary Care Provider [phone] Encounter Details Date Type Department Care Team ([facility] st Contact Info) Description 11/07/2023 Orders Only [facility] [address] [place] [address] Kiya Burnett MD [address] [place] [address] Herpes simplex (Primary Dx) Social History Tobacco Use Types Packs/Day Years [...] on file documented as of this encounter Procedures Procedure Name Priority Date/Time Associated Diagnosis Comments HIGH SENSITIVITY TROPONIN I Routine 03/23/2024 11:31 PM EST Herpes simplex COMPREHENSIVE METABOLIC PANEL Routine 03/23/2024 11:31 PM EST Herpes simplex CBC WITH AUTO DIFFERENTIAL Routine 03/23/2024 11:30 PM EST Herpes simplex documented in this encounter Results * High Sensitivity Troponin I (03/23/2024 11:31 PM EST) TROPONIN I HIGH SENSITIVITY <2.7 <3.5 - 17.0 ng/L [facility] Comment:The [place]urt high sens itivity Troponin-I results should beused in conjunction with other diagnostic information suchas ECG, clinical observations and information, and patientsymptoms to aid in the diagnosis of [place]. 03/23/2024 11:3 1 PM EST 03/23/2024 11:36 PM EST us Generic External Data Provider LAB BLOOD ORDERAB LES Final Result [facility] [address] [place] [phone] * (ABNORMAL) Comprehensive Metabolic Panel (03/23/2024 11:31 PM EST) Sodium 140 135 - 145 mmol/L [facility] Potassium 3.8 3.3 - 5.1 mmol/L [facility] Chloride 108 96 - 108 mmol/L [facility] Carbon Dioxide 25 22 - 29 mmol/L [facility] Anion Gap 11(L) 12 - 20 [facility] Urea Nitrogen (BUN) 10 9 - 16 mg/dL [facility] Creatinine, Serum 0.63 0.5 - 1.4 mg/dL [facility] Creatinine Clr Calc Pharmacy 119.8 [facility] Comment:Provided height and weight: 154.94 cm,80.5 kg.eGFR (calculated from the MDRD study equation) and eCrCl(calculated from the Cockcroft-Gault equation) are based ondifferent parameters and may not yield comparable results.If eCrCl result is absurd, please check patient'sheight/weight. Estimated Glomerular Filt Rate >60 [facility] Comment:Chronic Kidney Disea se: Estimated GFR < 60 mL/min/1.42n4Mjlovw Kidney Disease: Estimated GFR < 15 mL/min/1.73m2 Glucose 97 60 - 115 mg/dL [facility] Calcium 8.4 8.4 - 10.2 mg/dL [facility] Bilirubin, Total 0.1 0.0 - 1.0 mg/dL [facility] Aspartate Amino Transferase 15 5 - 31 U/L [facility] Alanine Aminotransferase 22 0 - 31 U/L [facility] Total Protein 6.6 6.5 - 8.0 g/dL [facility] Albumin Level 3.9 3.5 - 5.0 g/dL [facility] Alkaline Phosphatase 50 39 - 117 U/L [facility] 03/23/2024 11:3 1 PM EST 03/23/2024 11:36 PM EST us Generic External Data Provider LAB BLOOD ORDERAB LES Final Result [facility] [address] [place] [phone] * (ABNORMAL) CBC auto differential (03/23/2024 11:30 PM EST) White Blood Count 7.9 4.8 - 10.8 X10*3/uL [facility] Red Blood Count 4.61 4.20 - 5.50 X10*6/uL [facility] Hemoglobin 14.4 12.0 - 16.0 g/dl [facility] Hematocrit 41.0 37.0 - 47.0 % [facility] Mean Corpuscular Volume 88.9 80.0 - 98.0 fL [facility] Mean Corpuscular Hemoglobin 31.2 27.0 - 33.0 pg [facility] Mean Corpuscular HGB Conc 35.1(H) 31.0 - 35.0 g/dl [facility] Red Cell Distribution Width 12.1 11.0 - 16.0 % [facility] Platelet Count 284 160 - 400 X10*3/uL [facility] Mean Platelet Volume 9.4 9.4 - 12.3 fL [facility] Neutrophils Percent Auto 45.5 45 - 73 % [facility] Imm Gran Pct Auto 0.1 0.0 - 0.4 % [facility] Lymphocytes Percent Auto 42.6(H) 20 - 40 % [facility] Monocytes Percent Auto 6.9 2 - 11 % [facility] Eosinophils Percent Auto 4.5(H) 0 - 4 % [facility] Basophils Percent Auto 0.4 0 - 2 % [facility] NRBC Pct Auto 0.0 0.0 - 0.2 /100WBC [facility] Neutrophils Absolute Auto 3.6 2.0 - 8.3 x10*3/uL [facility] Imm Gran Abs Auto 0.01 0.00 - 0.03 X10*3/uL [facility] Lymphocytes Absolute Auto 3.4 1.2 - 4.9 X10*3/uL [facility] Monocytes Absolute Auto 0.5 0.1 - 1.2 X10*3/uL [facility] Eosinophils Absolute Auto 0.4 0.0 - 0.4 X10*3/uL [facility] Basophils Absolute Auto 0.0 0.0 - 0.2 X10*3/uL [facility] NRBC Abs Auto 0.000 0.0 - 0.012 X10*3/uL [facility] 03/23/2024 11:3 0 PM EST 03/23/2024 11:36 PM EST us Generic External Data Provider LAB BLOOD ORDERAB LES Final Result [facility] [address] [place] [address] [phone] documented in this encounter Visit Diagnoses Diagnosis Herpes simplex- Primary Herpes simplex without mention of complication documented in this encounter Care Teams Injector Assembler Relationship Specialty Start Date End Date Kiya Burnett MD [address] [place] [phone] PCP - General Family Medicine 10/25/19 documented as of this encounter
--- OUTSIDE RECORDS SUMMARY | 2024-05-07 17:00 | XMS_ITS | Encounter Summary ---
Author Organization [employer] Address 75 [facility] 7t [place] [address] Care Team Providers Care Data Systems Manager Name Role Phone Kiya Burnett MD Primary Care Provider [phone] Reason for Visit * Reason Onset Date Comments Nurse Triage 05/07/2024 Encounter Details Date Type Department Care Team ([facility] Contact Info) Description 05/07/2024 Telephone [facility] [address] [place] [address] Kiya Burnett MD [address] [place] [address] Nurse Triage Social History Tobacco Use Types Packs/Day Years [...] AM EDT documented as of this encounter Miscellaneous Notes * Telephone Encounter - Hina Levy LPN - 05/07/2024 2:49 PM EDT Triage call returned to patient who reports that she has urinary discomfort for 2 days. Has noted spotting with wiping after voiding and urgency and pressure to void. No back or flank pain no fever. Is taking fluids. No nausea or vomiting. Disposition reviewed with patient in agreement with plan. No PCP or Team appts. Available at time of call. [facility] hours and availability provided fo r today and early tomorrow hours for patient evaluation. Triage nurse informed the patient may havea wait of 1-2 hours because Walk In Clinic may have delays due to patient volume or symptom acuity.Insurance verified as active. Protocol Used: Urinary Symptoms (Adult) Protocol-Based Disposition: See in Office or Video Visit Today Override (Final) Disposition: Go to Urgent Care Now Override Reason: No appointments available Video visit not offered Positive Triage Question: * Urinating more frequently than usual (i.e., frequency) OR new-onset of the feeling of an urgent need to urinate (i.e., urgency) * All higher-acuity triage questions were negative Care Advice Discussed: * Reasons To Call Back - Fever occurs - Pain or burning with urination - Unable to urinate and bladder feels full - You become worse * Telephone Encounter - Bry Johnson - 05/07/2024 2:44 PM EDT Symptom: Urination Pain Outcome: Schedule an urgent appointment (within 1 hour) or talk to a nurse or provider soon Reason: Severe pain now The caller accepted this outcome. documented in this encounter Plan of Treatment Not on file documented as of this encounter Visit Diagnoses Not on filedocumented in this encounter Additional Health Concerns Assessment Noted Time PHQ-9 Depression Total Score: 0 11/10/19 24 2:34 PM EDT documented as of this encounter Care Teams Data Systems Manager Relationship Specialty Start Date End Date Kiya Burnett MD [address] [place] [address] PCP - General Family Medicine 10/25/19 documented as of this encounter
--- OUTSIDE RECORDS SUMMARY | 2024-05-07 17:00 | XMS_ITS | Encounter Summary ---
Author Organization [employer] Address 75 [facility] 7t [place] [address] Care Team Providers Care Paraprofessional Aide Teacher Name Role Phone Kiya Burnett MD Primary Care Provider [phone] Reason for Visit * Reason Comments Med Refill Encounter Details Date Type Department Care Team ([facility] Contact Info) Description 04/30/2024 Refill [facility] [address] [place] [address] Kiya Burnett MD [address] [place] [address] Social History Tobacco Use Types Packs/Day Years [...] documented as of this encounter Care Teams Paraprofessional Aide Teacher Relationship Specialty Start Date End Date Kiya Burnett MD [address] [place] [address] PCP - General Family Medicine 10/25/19 documented as of this encounter
--- OUTSIDE RECORDS SUMMARY | 2024-05-07 17:00 | XMS_ITS | Encounter Summary ---
Author Organization [employer] Address 75 [facility] 7t [place] [address] Care Team Providers Care Water Pumping Station Engineer Name Role Phone Kiya Burnett MD Primary Care Provider [phone] Encounter Details Date Type Department Care Team ([facility] st Contact Info) Description 05/07/2024 Population Health Risk Score [facility] (C3) Department [address] [facility] [address] [place] [address] Provider, Population Health Generic Social History Tobacco Use Types Packs/Day Years [...] documented as of this encounter Care Teams Water Pumping Station Engineer Relationship Specialty Start Date End Date Kiya Burnett MD [address] [place] [phone] PCP - General Family Medicine 10/25/19 documented as of this encounter
--- OUTSIDE RECORDS SUMMARY | 2024-05-07 17:01 | XMS_ITS | Clinical Summary ---
Author Organization [employer] Address 75 [facility] 7t [place] [address] Care Team Providers Care Dress Designer Name Role Phone Kiya Burnett MD Primary Care Provider [phone] Allergies No known active allergies Medications ibuprofen 800 MG tabletIndicati ons:Poor dentition Take 1 tablet (800 mg) by mouth 3 times daily. 90 tablet 07/18/19 24 Active omeprazole (PriLOSEC) [address] capsule Take 20 mg by mouth Once per day. 08/08/19 24 Active valACYclovir (Valtrex) 500 MG tabletIndicati ons:Herpes simplex Take 1 tablet (500 mg) by mouth Once per day. For prevention of outbreaks 90 tablet 3 11/10/19 24 025 Active Vit-Fe Fumarate-FA ( Vitamins) 28-0.8 MG tablet TAKE ONE TABLET DAILY FOR HAIR LOSS 90 tablet 3 05/01/19 25 Active clotrimazole (Lotrimin) 1 % cream Apply topically 2 times daily for 28 days. 60 g 4 05/08/19 25 025 Active nitrofurantoin , macrocrystal-m onohydrate, (Macrobid) 100 MG capsule Take 1 capsule (100 mg) by mouth 2 times daily for 5 days. 10 capsule 05/08/19 25 025 Active Vit-Fe Fumarate-FA ( Vitamins) 28-0.8 MG tablet TAKE ONE TABLET DAILY FOR HAIR LOSS 90 tablet 3 03/24/19 24 025 Discontinued nitrofurantoin , macrocrystal-m onohydrate, (Macrobid) 100 MG capsule Take 1 capsule (100 mg) by mouth 2 times daily for 7 days. 14 capsule 05/08/19 25 025 Discontinued Active Problems Problem Noted Date Diagnosed Date [...] 04/05/2022 Mild persistent asthma 07/02/2017 Anxiety 11/21/2014 Encounters Date Type Department Care Team Description 05/07/2024 3:40 PM EDT Office Visit [facility] [address] [place] [address] UTI symptoms 05/07/2024 Travel 05/07/2024 Telephone [facility] [address] [place] [address] Kiya Burnett MD Nurse Triage 05/07/2024 Population Health Risk Score [facility] (C3) Department [address] [place] [phone] Provider, Population Health Generic 04/30/2024 Refill [facility] [address] [place] [address] Kiya Burnett MD from Last 3 Months Immunizations Name Administration Dates Next Due DTaP [...] the past 12 months, has t he [employer], [employer], oil or water company threatened to shut [...] Sign Reading Time Taken Comments Blood Pressure 126/79 05/07/2024 3:37 PM EDT Pulse 80 05/07/2024 3:37 PM EDT Temperature 36.6 ??C (97.9 ??F) 05/07/2024 3:37 PM ED T Respiratory Rate 16 05/07/2024 3:37 PM EDT Oxygen Saturation 99% 05/07/2024 3:37 PM EDT Inhaled Oxygen Concentration - - Weight 67.1 kg (148 lb) 05/07/2024 3:37 PM EDT Height 154.9 cm (5' 1 ) 11/10/2023 2:32 PM EDT Body Mass Index 27.96 11/10/2023 2:32 PM EDT Plan of Treatment Health Maintenance Due Date Last Done Comments HIV Screening 1989 Lipid Panel 1989 Alcohol/Substance Use Screening 2001 Family Planning (PISQ) 2004 Hepatitis C Screening 2007 Pneumococcal Vaccine: Pediatrics (0 to 5 Years) and At-Risk Patients (6 to 49) Years) (1 of 2 - PCV) 2008 COVID-19 Vaccine (1 - season) 2023 Influenza Vaccine (#1) 2023 SDOH [...] Procedure Name Priority Date/Time Associated Diagnosis Comments POCT URINALYSIS DIPSTICK Routine 05/07/2024 3:43 PM EDT UTI symptoms HIGH SENSITIVITY TROPONIN I Routine 03/23/2024 11:31 [...] Recently Relevant to Health Maintenance Results * (ABNORMAL) POCT urinalysis dipstick manually resulted (05/07/2024 3:43 PM EDT) Color, UA Yellow Clarity, UA Clear Glucose, UA Negative Bilirubin, UA Negative Ketones, UA Negative Spec Grav, UA 1.015 Blood, UA Positive(A) Negative, None Detected Comment:Small pH, UA 6.0 Protein, UA Negative Urobilinogen, UA 0.2 Leukocytes, UA Moderate(A) Negative, Rare, Trace Nitrite, UA Negative Negative, None Detected Appearance, UA ok Urine 05/07/2024 3:43 PM EDT Kiya Burnett MD POINT OF CARE TEST ENTER/EDIT ORDERABLES Final Result * High Sensitivity Troponin I (03/23/2024 11:31 PM EST) Pathologist [facility] TROPONIN I HIGH SENSITIVITY <2.7 <3.5 - 17.0 ng/L [facility] Comment:The Hurt high sens itivity Troponin-I results should beused in conjunction with other diagnostic information suchas ECG, clinical observations and information, and patientsymptoms to aid in the diagnosis of [place]. 03/23/2024 11:3 1 PM EST 03/23/2024 11:36 PM EST Generic External Data Provider LAB BLOOD ORDERAB LES Final Result [facility] [address] [place] [address] [phone] * (ABNORMAL) Comprehensive Metabolic Panel (03/23/2024 11:31 PM EST) [facility] Sodium 140 135 - 145 mmol/L [facility] Potassium 3.8 3.3 - 5.1 mmol/L [facility] Chloride 108 96 - 108 mmol/L [facility] Carbon Dioxide 25 22 - 29 mmol/L [facility] Anion Gap 11(L) 12 - 20 [facility] Urea Nitrogen (BUN) 10 9 - 16 mg/dL [facility] Creatinine, Serum 0.63 0.5 - 1.4 mg/dL [facility] Creatinine Clr Calc Pharmacy 119.8 [facility] Comment:Provided height and weight: 154.94 cm,80.5 kg.eGFR (calculated from the MDRD study equation) and eCrCl(calculated from the Cockcroft-Gault equation) are based ondifferent parameters and may not yield comparable results.If eCrCl result is absurd, please check patient'sheight/weight. Estimated Glomerular Filt Rate >60 [facility] Comment:Chronic Kidney Disea se: Estimated GFR < 60 mL/min/1.44e3Hzkrsi Kidney Disease: Estimated GFR < 15 mL/min/1.73m2 Glucose 97 60 - 115 mg/dL [facility] Calcium 8.4 8.4 - 10.2 mg/dL [facility] Bilirubin, Total 0.1 0.0 - 1.0 mg/dL [facility] Aspartate Amino Transferase 15 5 - 31 U/L [facility] Alanine Aminotransferase 22 0 - 31 U/L [facility] Total Protein 6.6 6.5 - 8.0 g/dL [facility] Albumin Level 3.9 3.5 - 5.0 g/dL [facility] Alkaline Phosphatase 50 39 - 117 U/L [facility] 03/23/2024 11:3 1 PM EST 03/23/2024 11:36 PM EST us Generic External Data Provider LAB BLOOD ORDERAB LES Final Result [facility] [address] [place] [phone] * (ABNORMAL) CBC auto differential (03/23/2024 11:30 PM EST) White Blood Count 7.9 4.8 - 10.8 X10*3/uL [facility] Red Blood Count 4.61 4.20 - 5.50 X10*6/uL [facility] Hemoglobin 14.4 12.0 - 16.0 g/dl [facility] Hematocrit 41.0 37.0 - 47.0 % [facility] Mean Corpuscular Volume 88.9 80.0 - 98.0 fL [facility] Mean Corpuscular Hemoglobin 31.2 27.0 - 33.0 pg [facility] Mean Corpuscular HGB Conc 35.1(H) 31.0 - 35.0 g/dl [facility] Red Cell Distribution Width 12.1 11.0 - 16.0 % [facility] Platelet Count 284 160 - 400 X10*3/uL [facility] Mean Platelet Volume 9.4 9.4 - 12.3 fL [facility] Neutrophils Percent Auto 45.5 45 - 73 % [facility] Imm Gran Pct Auto 0.1 0.0 - 0.4 % [facility] Lymphocytes Percent Auto 42.6(H) 20 - 40 % [facility] Monocytes Percent Auto 6.9 2 - 11 % [facility] Eosinophils Percent Auto 4.5(H) 0 - 4 % [facility] Basophils Percent Auto 0.4 0 - 2 % [facility] NRBC Pct Auto 0.0 0.0 - 0.2 /100WBC [facility] Neutrophils Absolute Auto 3.6 2.0 - 8.3 x10*3/uL [facility] Imm Gran Abs Auto 0.01 0.00 - 0.03 X10*3/uL [facility] Lymphocytes Absolute Auto 3.4 1.2 - 4.9 X10*3/uL [facility] Monocytes Absolute Auto 0.5 0.1 - 1.2 X10*3/uL [facility] Eosinophils Absolute Auto 0.4 0.0 - 0.4 X10*3/uL [facility] Basophils Absolute Auto 0.0 0.0 - 0.2 X10*3/uL [facility] NRBC Abs Auto 0.000 0.0 - 0.012 X10*3/uL [facility] 03/23/2024 11:3 0 PM EST 03/23/2024 11:36 PM EST us Generic External Data Provider LAB BLOOD ORDERAB LES Final Result [facility] [address] [place] [phone] [phone] * HPV mRNA E6/E7 w/Reflex to HPV Genotypes 16, 18/45 (12/10/2022 3:33 PM EDT) HPV nRNA E6/E7 Not Detected Not Detected [facility] Comment:Methodology: Transcr iption-Mediated AmplificationThis assay detects E6/E7 viral messenger RNA (mRNA) from 14high-risk HPV types (16,18,31,33,35,39,45,51,52,56,58,59,66,68).Cervical sources are required for HPV testing.If a vaginal source from a patient who has had atotal hysterectomy with removal of cervix wassubmitted, please contact the testing laboratoryfor alternative testing options.For additional information, please refer tohttp://education.Fantastic.cl/faq/LNI964r5(This link if provided for information/educational purposes only.)THIS TEST WAS PERFORMED AT:[facility] [place] [phone] ALFORD MD HPV mRNA E6/E7 [facility] HPV 16 RNA [facility] HPV 18/45 RNA [facility] 12/10/2022 3:33 PM EDT 12/11/2022 8:00 AM EDT [facility] External Provider LAB CYT OLOGY ORDERABLES Final Result [facility] [address] [place] [phone] * Pap Smear (12/10/2022 3:33 PM EDT) 12/10/2022 3:33 PM EDT 12/11/2022 8:00 AM EDT Narrative [facility] - 12/17/2022 8:17 AM EDT ----- ------- Name: Kenya Verdugo ?Age/Sex: 32/F ? : 1990 Unit#: [id number] ?? Attend Dr: Roseanne Mondragon CNM ?Re12/10/22 ?Status: DEP REF ? Location: HO.LNP ?Disch: ? ----- ------- SPEC : [id number] ?RECD: 12/11/22 ? STATUS: ??SOUT ? REQ NUM: [id number] ? JAYASHREE: [birth year]10/228 ? SUBM DR: Roseanne Mondragon CNM ? ENTERED: ??12/11/22 ?SP TYPE: Pap Smr [...] 66, 68) ?? HPV testing performed by [facility], [place], [place]. ??See reference laboratory ?? pion of the EMR for entire report. ?Clinical Information LMP: 2 weeks ago Previous PAP test: 2011, ??WNL ? Material Received ?? ThinPrep-Cervical Copies To: ?? Kiya Burnett ?? [address] ?? [place] [address] ?? [phone] ?? Roseanne Mondragon CNM ?? [address] [facility] ?? [place] [address] ?? [phone] ----- ------- Signed (signature on file) BRAYAN Davis (ASCP) 12/17/22 0817 ? ----- ------- ? END OF REPORT ? [facility] External Provider LAB CYT OLOGY ORDERABLES Final Result [facility] [address] [place] [address] [phone] from Last 3 Months or Most Recently Relevant to Health Maintenance [facility] Care Teams Dress Designer Relationship Specialty Start Date End Date Kiya Burnett MD [address] [place] [address] PCP - General Family Medicine 10/25/19
--- OUTSIDE RECORDS SUMMARY | 2024-05-07 17:01 | XMS_ITS | Encounter Summary ---
Author Organization [employer] Address [address] [facility] [address] 7[address] [place] [address] Care Team Providers Care Aircraft Machinist Name Role Phone Kiya Burnett MD Primary Care Provider [phone] Encounter Details Date Type Department Care Team ([facility] st Contact Info) Description 05/07/2024 3:40 PM EDT Office Visit [facility] [address] [place] [address] UTI symptoms Social History Tobacco Use Types Packs/Day Years [...] AM EDT documented as of this encounter Last Filed Vital Signs Vital Sign Reading Time Taken Comments Blood Pressure 126/79 05/07/2024 3:37 PM EDT Pulse 80 05/07/2024 3:37 PM EDT Temperature 36.6 ??C (97.9 ??F) 05/07/2024 3:37 PM ED T Respiratory Rate 16 05/07/2024 3:37 PM EDT Oxygen Saturation 99% 05/07/2024 3:37 PM EDT Inhaled Oxygen Concentration - - Weight 67.1 kg (148 lb) 05/07/2024 3:37 PM EDT Height - - Body Mass Index 27.96 11/10/2023 2:32 PM EDT documented in this encounter Plan of Treatment Scheduled Orders Name Type Priority Associated Diagnoses Orde r Schedule Culture, Urine, Routine Microbiology Routine UTI symptoms Ordered: 05/07/2024 documented as of this encounter Procedures Procedure Name Priority Date/Time Associated Diagnosis Comments POCT URINALYSIS DIPSTICK Routine 05/07/2024 3:43 PM EDT UTI symptoms documented in this encounter Results * (ABNORMAL) POCT urinalysis dipstick manually [...] OF CARE TEST ENTER/EDIT ORDERABLES Final Result documented in this encounter Visit Diagnoses Diagnosis UTI symptoms documented in this encounter Additional Health Concerns Assessment Noted Time PHQ-9 Depression Total Score: 0 11/10/19 24 2:34 PM EDT documented as of this encounter Care Teams Aircraft Machinist Relationship Specialty Start Date End Date Kiya Burnett MD [address] [place] [phone] PCP - General Family Medicine 10/25/19 documented as of this encounter
== END 2024-05-07 16:52 | disposition home or self-care (01) ==
LOC: HO.LNP 16:51
PROVIDERS: Visit Provider General Practice
DX: R39.9 Unspecified symptoms and signs involving the genitourinary system (principal)
CPT/HCPCS: 87086